=== PATIENT | male | born 1940 | race Caucasian/White ===

== ENCOUNTER 2019-10-18 09:56 | Emergency (ER) | payer MEDICARE, OTHER ==
[~2019-10-18] VITALS: Ht 177.8 cm; Wt 64.7 kg
--- NOTE | 2019-10-18 10:08 | NUR ---
[employer]: PATIENT NOT IN LOBBY X1.
--- NOTE | 2019-10-18 10:16 | NUR ---
Pt ambulates with steady gait and balance from triage to room. NADN. No obvious defecits observed.
[2019-10-18 10:22] VITALS: BP 175/113
--- NOTE | 2019-10-18 10:27 | NUR ---
Pt resting on gurney connected to NIBP cuff, continous pulse ox monitor, and civil drafter. Call light within reach. Bedrails up x 2. Pt denies c/o pain. EDMD at bedside. NADN. No needs expressed.
--- NOTE | 2019-10-18 10:55 | NUR ---
Pt resting on gurney connected to NIBP cuff, continous pulse ox monitor, and ekg monitor tech. Bedrails up x 2 and call light within reach. No acute distress noticed. No needs expressed. Pt denies c/o pain. Pt pending lab work.
[2019-10-18 11:27] LABS: ALBUMIN 3.8 g/dL (3.4-5.0); ANION GAP 5 mmol/L (5-15); CALCIUM 8.9 mg/dL (8.5-10.1); CHLORIDE 108 mmol/L (98-107)
[2019-10-18 11:29] LABS: CREATININE 0.85 mg/dL (0.7-1.3)
== END 2019-10-18 12:10 | disposition home or self-care (01) ==
LOC: ED 12:00
DX: I10 Essential (primary) hypertension (principal); Z87.891 Personal history of nicotine dependence
CPT/HCPCS: 36415; 80048; 82040; 93005; 99284